=== PATIENT | male | born 1995 | race Caucasian/White ===

== ENCOUNTER 2016-10-08 13:33 | Emergency (ER) | payer OTHER ==
[2016-10-08 13:35] VITALS: BP 129/77; PULSE 68; RESP 18; TEMP 97.8; O2SAT 99
[2016-10-08] MEDS ORDERED: IBUPROFEN 800 MG TAB PO ONE (15:00)
[2016-10-08] MEDS ORDERED: METHOCARBAMOL 500 MG TAB PO ONE (15:00)
[2016-10-08] MEDS ORDERED: IBUP800T23 PO (15:02)
[2016-10-08] MEDS ORDERED: ROBA750T PO (15:02)
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
== END 2016-10-08 15:37 | disposition home or self-care (01) ==
LOC: NEPB 13:33
DX: M54.2 Cervicalgia (principal); S16.1XXA Strain of muscle, fascia and tendon at neck level, initial encounter; S39.012A Strain of muscle, fascia and tendon of lower back, initial encounter; V43.52XA Car driver injured in collision with other type car in traffic accident, initial encounter; Y92.410 Unspecified street and highway as the place of occurrence of the external cause; Z72.0 Tobacco use
CPT/HCPCS: 99283